=== PATIENT | male | born 1955 | race Caucasian/White ===

== ENCOUNTER 2017-09-20 16:36 | Emergency (ER) | payer OTHER ==
[~2017-09-20] VITALS: Ht 190.5 cm; Wt 95.2 kg
[~2017-09-20 16:36] MED LIST: ACETAMINOPHEN325 M1 PO; ALEVE220 MG PO; HYDROXYZINE HCL25 MG PO; MEDROL4 M1 PO; WHEAT GERM OIL PO; [UNRECOGNIZED DRUG - OTHER] PO; [UNRECOGNIZED DRUG - OTHER] PO
[2017-09-20] MEDS ORDERED: GABAPENTIN300 MG PO (19:26)
[2017-09-20] MEDS ORDERED: NORCO 5-325 TA1 EACH PO (21:32)
[2017-09-24] MEDS ORDERED: HYDROCODON-ACE1 EAC8 PO (15:16)
[2017-10-29] MEDS ORDERED: ZOFRAN ODT4 MG PO (10:00)
[2017-10-29] MEDS ORDERED: OXYCODONE HCL5 M1 PO (10:01)
[2017-10-29] MEDS ORDERED: DEXAMETHASONE4 MG PO (16:00)
== END 2017-09-20 21:47 | disposition home or self-care (01) ==
LOC: ED 16:36
DX: G89.3 Neoplasm related pain (acute) (chronic) (principal); C64.2 Malignant neoplasm of left kidney, except renal pelvis; F17.200 Nicotine dependence, unspecified, uncomplicated; Z91.030 Bee allergy status; Z79.899 Other long term (current) drug therapy
CPT/HCPCS: 74177; 80053; 81001; 83690; 85025; 99284; Q9967

== ENCOUNTER 2017-10-13 20:08 | Emergency (ER) | payer OTHER ==
[~2017-10-13] VITALS: Ht 188 cm; Wt 94.6 kg
[~2017-10-13 20:08] MED LIST changes: +GABAPENTIN300 MG PO; +HYDROCODON-ACE1 EAC8 PO; +NORCO 5-325 TA1 EACH PO
--- NOTE | 2017-10-14 16:49 | EKG ---
[facility] [address] [facility] [place] [address] Signed Normal sinus rhythm Normal ECG When compared with ECG of 30-SEP-2017 08:10, premature ventricular complexes are no longer present Confirmed by TIN SAMANIEGO MD ([id number]) on 10/14/2017 4:49:32 PM Electronically Signed By: TIN SAMANIEGO MD 10/14/17 1649 PATIENT NAME: CERONTICO KASSANDRA Electrocardiogram DATE OF : 55 PHYSICIAN: TIN SAMANIEGO MD REPORT #: [id number] REPORT IS CONFIDENTIAL AND NOT TO BE RELEASED WITHOUT AUTHORIZATION
[2017-10-29] MEDS ORDERED: ZOFRAN ODT4 MG PO (10:00)
[2017-10-29] MEDS ORDERED: OXYCODONE HCL5 M1 PO (10:01)
[2017-10-29] MEDS ORDERED: DEXAMETHASONE4 MG PO (16:00)
== END 2017-10-14 21:58 | disposition short-term general hospital (02) ==
LOC: ED 20:08
DX: T81.4XXA Infection following a procedure, initial encounter (principal); K65.1 Peritoneal abscess; C64.2 Malignant neoplasm of left kidney, except renal pelvis; C78.00 Secondary malignant neoplasm of unspecified lung; C79.31 Secondary malignant neoplasm of brain; Z90.5 Acquired absence of kidney; F17.200 Nicotine dependence, unspecified, uncomplicated; Z91.030 Bee allergy status
CPT/HCPCS: 70450; 71260; 74177; 80053; 81001; 83690; 84484; 85025; 85379; 93005; 93010; 96374; 96375; 96376; 99285; J0692; J1100; J1170; J1200; J2405; J7040; Q9967

== ENCOUNTER 2017-11-10 09:02 | Emergency (ER) | payer OTHER ==
[~2017-11-10] VITALS: Ht 188 cm; Wt 81.2 kg
[~2017-11-10 09:02] MED LIST changes: +DEXAMETHASONE4 MG PO; +OXYCODONE HCL5 M1 PO; +ZOFRAN ODT4 MG PO
== END 2017-11-10 13:30 | disposition home or self-care (01) ==
LOC: ED 09:02
DX: R10.30 Lower abdominal pain, unspecified (principal); C64.2 Malignant neoplasm of left kidney, except renal pelvis; Z87.891 Personal history of nicotine dependence; Z91.030 Bee allergy status; Z79.899 Other long term (current) drug therapy
CPT/HCPCS: 74176; 80053; 83605; 83690; 85025; 96361; 96374; 96375; 96376; 99284; J1885; J2405; J3010; J7030

== ENCOUNTER 2017-11-18 12:33 | Emergency (ER) | payer OTHER ==
[~2017-11-18] VITALS: Ht 188 cm; Wt 81.2 kg
[2017-11-18] MEDS ORDERED: DURAGESIC1 EACH TD (13:54)
== END 2017-11-18 14:25 | disposition home or self-care (01) ==
LOC: ED 12:33
DX: E86.0 Dehydration (principal); G89.29 Other chronic pain; Z85.841 Personal history of malignant neoplasm of brain; Z85.528 Personal history of other malignant neoplasm of kidney; Z87.891 Personal history of nicotine dependence; Z91.030 Bee allergy status; Z79.899 Other long term (current) drug therapy
CPT/HCPCS: 96361; 96374; 96375; 99283; J1170; J2405; J7030

== ENCOUNTER 2017-11-22 13:20 | Emergency (ER) | payer OTHER ==
[~2017-11-22] VITALS: Ht 188 cm; Wt 75.3 kg
[~2017-11-22 13:20] MED LIST changes: +DURAGESIC1 EACH TD
--- NOTE | 2017-11-22 19:06 | EKG ---
[facility] [address] [place], [place] [address] Signed Sinus tachycardia Anterior infarct , age undetermined Abnormal ECG When compared with ECG of 13-OCT-2017 21:07, No significant change was found Confirmed by TIN SAMANIEGO MD ([id number]) on 11/22/2017 7:05:49 PM Electronically Signed By: TIN SAMANIEGO MD 11/22/17 [id number] PATIENT NAME: TICO CERON Electrocardiogram DATE OF : 55 PHYSICIAN: TIN SAMANIEGO MD REPORT #: [id number] REPORT IS CONFIDENTIAL AND NOT TO BE RELEASED WITHOUT AUTHORIZATION
== END 2017-11-22 15:41 | disposition home or self-care (01) ==
LOC: ED 13:20
DX: R07.89 Other chest pain (principal); R06.02 Shortness of breath; Z91.030 Bee allergy status
CPT/HCPCS: 71045; 80053; 84484; 85025; 93005; 93010; 96374; 96375; 99284; J2060; J2270